=== PATIENT | male | born 1965 | race Caucasian/White ===

== ENCOUNTER 2016-08-19 11:19 | Inpatient (IN) ==
[2016-08-19] MEDS ORDERED: BISACODYL 5 MG TABLET PO PRN (11:22)
[2016-08-19] MEDS ORDERED: HYDROmorphone 2 MG/1 ML VIAL IV PRN (11:22)
[2016-08-19] MEDS ORDERED: ACETAMINOPHEN 325 MG TABLET PO PRN ×2 (11:22→14:35)
[2016-08-19] MEDS ORDERED: ALUMINUM/MAGNES/SIMETH MAX STR 30 ML UDCUP PO PRN (11:22)
--- NOTE | 2016-08-19 11:41 | General Surg History&Physical ---
Assessment and Plan - Time spent with patient Time spent with patient: Greater than 30 minutes (1) Abscess of leg, left Status: Acute Assessment and plan: Impression: 1. Abscess of the left pre-tibial area 2. Chronic osteomylitis of the left leg. Plan: Admit for IV antibiotics and surgery (2) Osteomyelitis of left tibia Status: Acute Qualifiers: Osteomyelitis type: chronic multifocal Qualified Code(s): M86.362 - Chronic multifocal osteomyelitis, left tibia and fibula History of Present Illness Chief complaint: Swelling and pain in the left leg History of present illness: Mr. Walsh is a 51 year old male white who has history of chronic osteomylitis of the left leg and has just recovered from multiple wounds and abscesses of the left leg. He was scheduled to go to [place] on the 06 of September for orthopedic evaluation. He developed some swelling about the healed wounds on Friday that has progressed to fluctuant masses and erythemia. Must believe that this is recurrent abscesses due the osteomylitis and drainage is needed. Home Medications Medication Instructions Recorded Confirmed Type Lisinopril/Hydrochlorothiazide 1 each PO DAILY 06/08/15 05/02/16 History [Lisinopril-Hctz 10-12.5 mg Tab] Allopurinol 300 mg PO DAILY 03/30/16 05/03/16 History Potassium Citrate [Urocit K] 20 meq PO BID 03/30/16 05/03/16 History Acetaminophen Tab [Tylenol Tab] 650 mg PO Q6H PRN #0 tablet 04/12/16 05/03/16 Rx DAPTOmycin [Cubicin] 780 mg IV Q24H #30 vial 04/12/16 05/03/16 Rx Docusate Sodium Cap [Colace Cap] 100 mg PO DAILY #30 capsule 04/12/16 05/03/16 Rx Skin Healing Oint (Aquaphor) 1 applic TOP DAILY #1 ointment 04/12/16 05/02/16 Rx [Aquaphor] oxyCODONE/ACETAMINOPHEN 5-325 1 tablet PO Q6H PRN #40 tablet 04/12/16 05/03/16 Rx [Percocet 5-325] oxyCODONE/ACETAMINOPHEN 5-325 1 tablet PO Q6H #30 tablet 05/03/16 Rx [Percocet 5-325] Allergies Allergy/AdvReac Type Severity Reaction Status Date / Time cephalexin [From flex] Allergy Severe HIVES Verified 05/03/16 06:46 clindamycin Allergy Severe Chest Pain Verified 05/03/16 06:46 Penicillins Allergy Severe HIVES Verified 05/03/16 06:46 Medical,Surgical,& Family Hx - Medical History Cardio: History of: Hypertension Psychological: No history of: Bipolar Disorder, Depression Neurology: No history of: Seizures HEENT: History of: Ear Problem (past hx of tubes) Rheumatology: History of;: Gout (hx), Rheumatoid Arthritis (GOUT) Genitourinary: History of: Kidney Stones (10-12 years off and on; DR CORNEJO) Musculoskeletal: History of: Musculoskeletal Problems (LEFT CALF SWELL TO OLD FX ) Other: History of: Miscellaneous Medical Problems (Pins put in Left toe and leg , took pins out. surgery) - Surgical History Thoracic Surgeries: Surgical HX of;: Lithotripsy HEENT Surgeries: Surgical HX of: Eye Surgery (robin lasix surgery), Tonsilectomy & Adenoidectomy Reproductive Surgeries: Surgical HX of;: Cystoscopy Orthopedic Surgeries: Surgical HX of;: Orthopedic Surgery - Family History Family History: Reports;: Family Diabetes (grandparents), Family Hypertension ( mom and grandparents) Denies;: Family Cancer, Family Heart Disease, Family Psychiatric Problems, Family Stroke - Social History Smoking Status: Never smoker Have you smoked in the last 12 months: No Time spent discussing smoking cessation with patient: 3 to 10 minutes Frequency of Alcohol Use: None Marital Status: Lives With:: Spouse Functional capacity: independent ambulation Exam - Constitutional General appearance: no acute distress - Head Head exam: Present: normal inspection - ENT ENT exam: Present: normal exam Mouth exam: Present: normal external inspection - Neck Neck exam: Present: normal inspection - Respiratory Respiratory exam: Present: clear to auscultation bilaterally - Cardiovascular Cardiovascular exam: Present: RRR - GI/Abdominal GI/Abdominal exam: Present: normal bowel sounds, soft - Extremities Exam Extremities exam: Present: other (Healed wounds on the lower mid pre-tibial area and medially to it. Mass above these wound on the anterior pre-tibial area with flutuance and erythemis with early ischemic changes.) - Back Exam Back exam: Present: normal inspection - Neurological Exam Neurological exam: Present: alert, oriented X3, CN II-XII intact - Skin Skin exam: Present: normal color, warm, dry 12 point system: reviewed and no additional remarkable complaints except as stated Quality Measures - VTE Contraindication to Pharmacological VTE Prophylaxis: High Risk of Bleeding
[2016-08-19 13:03] LABS: Basophils % 0.4 % (0.0-0.8); Eosinophils # 0.2 10*3/uL (0.0-0.87); Eosinophils % 1.8 % (0.00-10.9); Hematocrit 48.3 VOL% (42.0-52.0); Hemoglobin 15.8 GM/DL (14.0-18.0); Immature Granulocytes % 0.2 %; Immature Granulocytes Absolute 0.02 #; Lymphocytes # 2.6 10*3/uL (1.4-4.0); Lymphocytes % 27.6 % (21.2-54.2); Mean Corpuscular HGB Conc 32.7 GM/DL (32-36); Mean Corpuscular Hemoglobin 28 PG (27-34); Mean Corpuscular Volume 85.2 FL (87-102); Mean Platelet Volume 10.2 FL (9.6-12.0); Monocytes # 0.6 10*3/uL (0.11-0.8); Monocytes % 5.9 % (1.7-12.7); Neutrophils % 64.1 % (38.7-73.9); Platelet Count 205 T/CUMM (130-400); Red Blood Count 5.67 MC/CUMM (3.8-5.5); Red Cell Distribution Width 14.2 % (9.3-17.3); White Blood Count 9.4 T/CUMM (4-12)
[2016-08-19] MEDS ORDERED: BUPIVACAINE 0.25% 50 ML VIAL ONE (13:04)
--- NOTE | 2016-08-19 13:14 | XRay Report ---
Exam: XR chest 2V Date: 08/19/2016 11:27 AM Indication: Respiratory preop evaluation lungs for abscess leg Comparison: 05/02/2016 Technical: PA lateral Findings: The heart is normal in size. No obvious infiltrate or effusion. Mediastinum and bony structures are intact. Impression: 1. No acute cardiopulmonary pathology. PROCEDURE INTERPRETED AT [facility] DEPARTMENT OF RADIOLOGY Final Report Signed by: Dr. Dmitry Lee
[2016-08-19 13:20] LABS: PT Patient Result 10.5 SECS; Partial Thromboplastin Time 31.3 SECS (0-40)
[2016-08-19 13:24] LABS: Albumin 4.2 G/DL (3.4-5.0); Bilirubin,Total 0.5 MG/DL (0.2-1.0); Calcium 9.1 MG/DL (8.5-10.1); Osmolality,Calculated 288.6 MOS/KG (273-304); Potassium 4.1 MMOL/L (3.5-5.1); Total Protein 8.1 G/DL (6.4-8.3)
[2016-08-19] MEDS ORDERED: LACTATED RINGERS 1,000 ML IV SCH (13:30)
[2016-08-19] MEDS ORDERED: PROPOFOL 200 MG/20 ML VIAL IV ONE (13:40)
[2016-08-19] MEDS ORDERED: LIDOCAINE 2% 5 ML VIAL ONE (13:40)
[2016-08-19] MEDS ORDERED: VANCOMYCIN 1,000 MG VIAL ONE (13:47)
[2016-08-19] MEDS: HYDROmorphone 2 MG/1 ML VIAL IV PRN ×4 (14:35→14:50)
[2016-08-19] MEDS ORDERED: ONDANSETRON 4 MG/2 ML VIAL ONE (14:37)
[2016-08-19] MEDS ORDERED: HYDROmorphone 2 MG/1 ML VIAL ONE (14:37)
--- NOTE | 2016-08-19 14:42 | Operative Note ---
Date of procedure: 08/19/16 Pre-op diagnosis: Fluctuant mass of the anterior left tibia Post-op diagnosis: other (Fluctuant mass anterior left tibia appears to be hematoma) Procedure: Operative note: Preoperative diagnosis: 1. Fluctuant mass of the anterior tibia left 2. History of chronic osteomyelitis of the left leg Postoperative diagnosis: 1. Fluctuant mass of the anterior tibial left suggestive of hematoma 2. History of osteomyelitis of the left leg Procedure: Excisional debridement and drainage of fluctuant mass left anterior tibia Surgeon Dr. Tristan Anesthesia managed anesthetic care with local infiltration 0.25% Marcaine plain mixed with 1% Xylocaine plain Brief history: 51-year-old white male who presents with a fluctuant mass of the upper part of the leg pretibial area. This is the same leg on the left that has healed almost completely healed wound on the anterior tibial and the lower part of the leg secondary to some chronic underlying osteomyelitis of the leg. It is unclear exactly what this is but with the redness in the ecchymotic area present I felt with his history of osteomyelitis and previous infection that we need to go ahead and get this opened and drained and find out what we are dealing with. Procedure: With patient in the supine position prepped and draped in a sterile fashion timeout and antibiotics completed approaches area of the upper leg where there is a fluctuant mass present. The mass measures 4.5 x 4 cm in size. At this point I went ahead and infiltrated around it with local anesthetic and on top of the surface of it. We then took a knife and I made a vertical incision through the center of this area and as I entered the mass what came out look like old hematoma. I was able to clean this out completely taking some swabs for culture and sensitivity at this time. Once I had cleaned it well and then applied light cauterization to the edges of it to counteract good control of any bleeding and irrigated with saline solution. I now have a wound that is open that measures 4.5 x 1 cm x 1 cm in size. With that pretty well completed I was worried about a second area just medial to this it is a little fluctuant change but the 2 did not communicate so I have elected not to do anything to it at this time since it looked like we had a hematoma on this part. At this point I went ahead and dressed it with the Dakin's wet gauze and a bulky dressing and wrapped with cast padding Covan. We then took the patient to recovery room Estimated blood loss 10 cc Sponge count correct 2 Drains none Complications none Condition stable satisfactory Anesthesia: MAC, local (0.25% Marcaine with epinephrine mixed [id number] 1% Xylocaine plain.) Surgeon / Physician: Luis Tristan Estimated blood loss: other (10 cc) Specimens: other (Cultures) Condition: stable Disposition: floor Results - Labs CBC & BMP: 08/19/16 12:49 08/19/16 12:48 Discharge Plan - Discharge Medications No Action Lisinopril/Hydrochlorothiazide [Lisinopril-Hctz 10-12.5 mg Tab] 1 each PO DAILY Allopurinol 300 mg PO DAILY Potassium Citrate [Urocit K] 20 meq PO BID Acetaminophen Tab [Tylenol Tab] 650 mg PO Q6H PRN #0 tablet PRN Reason: Fever > 100.4 Or Headache Docusate Sodium Cap [Colace Cap] 100 mg PO DAILY #30 capsule Skin Healing Oint (Aquaphor) [Aquaphor] 1 applic TOP DAILY #1 ointment oxyCODONE/ACETAMINOPHEN 5-325 [Percocet 5-325] 1 tablet PO Q6H PRN #40 tablet PRN Reason: Pain Moderate (4-7) DAPTOmycin [Cubicin] 780 mg IV Q24H #30 vial oxyCODONE/ACETAMINOPHEN 5-325 [Percocet 5-325] 1 tablet PO Q6H #30 tablet - Follow Up or Referral - Forms/Instructions
[2016-08-19] MEDS ORDERED: KETAMINE 500 MG/10 ML VIAL ONE (14:48)
[2016-08-19] MEDS ORDERED: fentaNYL 100 MCG/2 ML VIAL ONE (14:48)
[2016-08-19] MEDS ORDERED: MIDAZOLAM 2 MG/2 ML VIAL ONE (14:49)
[2016-08-19] MEDS ORDERED: ONDANSETRON 4 MG/2 ML VIAL IV PRN (14:53)
[2016-08-19] MEDS ORDERED: DAPTOmycin 500 MG VIAL IV SCH (15:00)
[2016-08-19] MEDS: VANCOMYCIN INJ 1,750 MG in SODIUM CHLORIDE 0.9% 500 ML IV SCH (17:39)
[2016-08-19] MEDS: DOCUSATE SODIUM 100 MG CAPSULE PO SCH (20:34)
[2016-08-19] MEDS: POTASSIUM CITRATE 10 MEQ TABLET PO SCH (20:35)
[2016-08-19] MEDS: DEXTROSE 5% LACTATED RINGERS 1,000 ML IV SCH (23:28)
[2016-08-20] MEDS: VANCOMYCIN INJ 1,750 MG in SODIUM CHLORIDE 0.9% 500 ML IV SCH ×2 (00:26→08:22)
[2016-08-20] MEDS: DEXTROSE 5% LACTATED RINGERS 1,000 ML IV SCH ×4 (05:35→19:30)
[2016-08-20 07:05] LABS: Basophils % 0.4 % (0.0-0.8); Eosinophils # 0.1 10*3/uL (0.0-0.87); Eosinophils % 1.4 % (0.00-10.9); Hematocrit 40.7 VOL% (42.0-52.0); Immature Granulocytes % 0.4 %; Immature Granulocytes Absolute 0.04 #; Lymphocytes # 3.2 10*3/uL (1.4-4.0); Mean Corpuscular HGB Conc 31.9 GM/DL (32-36); Mean Corpuscular Hemoglobin 28 PG (27-34); Mean Corpuscular Volume 88.3 FL (87-102); Mean Platelet Volume 10.9 FL (9.6-12.0); Monocytes # 0.8 10*3/uL (0.11-0.8); Monocytes % 8.2 % (1.7-12.7); Neutrophils % 58.6 % (38.7-73.9); Platelet Count 184 T/CUMM (130-400); Red Blood Count 4.61 MC/CUMM (3.8-5.5); Red Cell Distribution Width 14.2 % (9.3-17.3); White Blood Count 10.2 T/CUMM (4-12)
[2016-08-20 07:16] LABS: Potassium 4.4 MMOL/L (3.5-5.1)
[2016-08-20] MEDS: LISINOPRIL/HCTZ 10-12.5 MG TABLET PO SCH (08:20)
[2016-08-20] MEDS: ALLOPURINOL 300 MG TABLET PO SCH (08:21)
[2016-08-20] MEDS: PANTOPRAZOLE 40 MG TABLET PO SCH (08:21)
[2016-08-20] MEDS: DOCUSATE SODIUM 100 MG CAPSULE PO SCH ×3 (08:21→20:49)
[2016-08-20] MEDS: POTASSIUM CITRATE 10 MEQ TABLET PO SCH ×2 (08:22→20:49)
[2016-08-20] MEDS ORDERED: PANTOPRAZOLE 40 MG VIAL IV SCH (09:00)
[2016-08-20] MEDS: SODIUM HYPOCHLORITE 0.25% IRRIG 473 ML BOTTLE TOP SCH (09:14)
[2016-08-20] MEDS: SKIN HEALING OINT (AQUAPHOR) 50 GM TUBE TOP SCH (09:15)
[2016-08-20] MEDS: BACITRACIN OINT 0.9 GM PACK TOP SCH (09:17)
--- NOTE | 2016-08-20 10:48 | General Surgery Progress Note ---
Assessment and Plan - Time spent with patient Time spent with patient: Less than 30 minutes (1) Hematoma of left lower extremity Status: Acute Assessment and plan: 08/20/16 Stable post I&D with evacuation of hematoma of the left lower leg. We' ll continue antibiotic coverage and wound care while awaiting cultures. If clear , consider closure. Current Visit: Yes Subjective Patient reports: Present: feels better. Absent: nausea, vomiting, shortness of breath Exam - Constitutional Vitals: Period Temp Pulse Resp BP Sys/Clark Pulse Ox Last 24 Hr 97.6 F-97.8 F 69-95 16-20 114-139/74-99 93-100 General appearance: no acute distress - Respiratory Respiratory exam: Present: clear to auscultation bilaterally - Cardiovascular Cardiovascular exam: Present: RRR - Extremities Exam Extremities exam: Present: other (Post op wound is clean and there is no active bleeding; mild erythema that is confined to the immediate incisioinal area. No advancing redness or induration. Calf is soft.) Results - Labs CBC & BMP: 08/20/16 05:57 08/20/16 05:57 Lab Results: I have reviewed the past 24 hour labs Quality Measures - VTE Contraindication to Pharmacological VTE Prophylaxis: High Risk of Bleeding
[2016-08-20] MEDS: VANCOMYCIN INJ 2,000 MG in SODIUM CHLORIDE 0.9% 500 ML IV SCH (20:51)
[2016-08-21] MEDS: DEXTROSE 5% LACTATED RINGERS 1,000 ML IV SCH ×2 (07:07→09:02)
[2016-08-21] MEDS: PANTOPRAZOLE 40 MG TABLET PO SCH (09:06)
[2016-08-21] MEDS: ALLOPURINOL 300 MG TABLET PO SCH (09:06)
[2016-08-21] MEDS: DOCUSATE SODIUM 100 MG CAPSULE PO SCH ×3 (09:06→20:39)
[2016-08-21] MEDS: LISINOPRIL/HCTZ 10-12.5 MG TABLET PO SCH (09:06)
[2016-08-21] MEDS: POTASSIUM CITRATE 10 MEQ TABLET PO SCH ×2 (09:06→20:39)
[2016-08-21] MEDS: VANCOMYCIN INJ 2,000 MG in SODIUM CHLORIDE 0.9% 500 ML IV SCH ×2 (10:30→20:38)
--- NOTE | 2016-08-21 10:35 | General Surgery Progress Note ---
Assessment and Plan - Time spent with patient Time spent with patient: Less than 30 minutes (1) Abscess of leg, left Status: Acute Assessment and plan: Impression: 1. Abscess of the left pre-tibial area 2. Chronic osteomylitis of the left leg. Plan: Admit for IV antibiotics and surgery 08/21/2016 The swelling of the leg is much improved at this time. The wound itself is clean with no sign of any infection or unusual drainage. A little fluctuant area off to the medial aspect really is little bit better and stable with no sign of any progression of any evidence of infection. The cultures are no growth at 24 hours. If we get a no growth at 48 hours then I have recommended to the patient we plan to close the wound and then we can probably let him go home in the hopes of getting quicker healing of this wound. Current Visit: Yes (2) Osteomyelitis of left tibia Status: Acute Current Visit: No Qualifiers: Osteomyelitis type: chronic multifocal Qualified Code(s): M86.362 - Chronic multifocal osteomyelitis, left tibia and fibula Subjective Patient reports: Present: feels better, tolerating a regular diet, afebrile Exam - Constitutional Vitals: Period Temp Pulse Resp BP Sys/Clark Pulse Ox Last 24 Hr 97.5 F-98.3 F 70-82 18-20 124-134/72-84 95-97 General appearance: no acute distress - Head Head exam: Present: normal inspection - ENT ENT exam: Present: normal exam - Neck Neck exam: Present: normal inspection - Respiratory Respiratory exam: Present: clear to auscultation bilaterally - Cardiovascular Cardiovascular exam: Present: RRR - GI/Abdominal GI/Abdominal exam: Present: normal bowel sounds, soft - Extremities Exam Extremities exam: Present: other (Wound of the left leg is clean and dry with no sign of any infection or drainage. The area on to the medial aspect of this leg is stable and unchanged.) - Neurological Exam Neurological exam: Present: alert, oriented X3, CN II-XII intact - Skin Skin exam: Present: normal color, warm, dry Results - Labs CBC & BMP: 08/20/16 05:57 08/20/16 05:57 Lab Results: I have reviewed the past 24 hour labs Labs: Cultures no growth at 24 hours Quality Measures - VTE Contraindication to Pharmacological VTE Prophylaxis: High Risk of Bleeding
[2016-08-21] MEDS: SODIUM HYPOCHLORITE 0.25% IRRIG 473 ML BOTTLE TOP SCH (15:38)
[2016-08-21] MEDS: BACITRACIN OINT 0.9 GM PACK TOP SCH (15:38)
[2016-08-21] MEDS: SKIN HEALING OINT (AQUAPHOR) 50 GM TUBE TOP SCH (15:38)
--- NOTE | 2016-08-21 21:31 | Anesthesia ---
Anesthesia Post OP - Post Ansesthetic Evaluation Patient seen in post op: Yes Resp: within normal limits CV: within normal limits Mental: within normal limits Temp: within normal limits [id number]: within normal limits Nausea and Vomiting: within normal limits Pain: within normal limits Patient seen at: date (08/19/2016), time (1416)
[2016-08-22] MEDS: LISINOPRIL/HCTZ 10-12.5 MG TABLET PO SCH (09:48)
[2016-08-22] MEDS: PANTOPRAZOLE 40 MG TABLET PO SCH (09:48)
[2016-08-22] MEDS: VANCOMYCIN INJ 2,000 MG in SODIUM CHLORIDE 0.9% 500 ML IV SCH (09:50)
--- NOTE | 2016-08-22 10:06 | General Surgery Progress Note ---
Assessment and Plan - Time spent with patient Time spent with patient: Less than 30 minutes (1) Hematoma of left lower extremity Status: Acute Assessment and plan: 08/22/16 Doing well post I&D; no growth seen on final wound culture. The patient is anxious to proceed with delayed wound closure so we will go ahead with this today. 08/20/16 Stable post I&D with evacuation of hematoma of the left lower leg. We' ll continue antibiotic coverage and wound care while awaiting cultures. If naomi/ consider closure. Current Visit: Yes Subjective Patient reports: Present: feels better Exam - Constitutional Vitals: Period Temp Pulse Resp BP Sys/Clark Pulse Ox Last 24 Hr 97.8 F-98.8 F 71-88 18-20 136-150/82-98 94-97 General appearance: no acute distress - Neck Neck exam: Present: normal inspection - Respiratory Respiratory exam: Present: clear to auscultation bilaterally - Cardiovascular Cardiovascular exam: Present: RRR - Extremities Exam Extremities exam: Present: other (LLE without drainage or swelling. Good capillary refill. ) Results - Labs CBC & BMP: 08/20/16 05:57 08/20/16 05:57 Lab Results: I have reviewed the past 24 hour labs (Micro shows no growth at 48h.) Quality Measures - VTE Contraindication to Pharmacological VTE Prophylaxis: High Risk of Bleeding Specialty Discharge - Follow Up or Referrals Follow up with: Luis Tristan MD [Primary Care Provider] -
[2016-08-22] MEDS: SKIN HEALING OINT (AQUAPHOR) 50 GM TUBE TOP SCH (10:50)
[2016-08-22] MEDS: BACITRACIN OINT 0.9 GM PACK TOP SCH (10:50)
[2016-08-22] MEDS: POTASSIUM CITRATE 10 MEQ TABLET PO SCH (10:51)
[2016-08-22] MEDS: ALLOPURINOL 300 MG TABLET PO SCH (10:51)
[2016-08-22] MEDS: DOCUSATE SODIUM 100 MG CAPSULE PO SCH ×2 (10:51)
[2016-08-22] MEDS: SODIUM HYPOCHLORITE 0.25% IRRIG 473 ML BOTTLE TOP SCH (10:51)
[2016-08-22] MEDS ORDERED: BUPIVACAINE 0.25% 50 ML VIAL ONE (10:56)
[2016-08-22] MEDS ORDERED: PROPOFOL 200 MG/20 ML VIAL IV ONE (11:15)
[2016-08-22] MEDS ORDERED: ONDANSETRON 4 MG/2 ML VIAL ONE ×2 (11:15→12:10)
--- NOTE | 2016-08-22 11:51 | Operative Note ---
Date of procedure: 08/22/16 Pre-op diagnosis: Open wound left pre-tibial area Post-op diagnosis: same Procedure: Operative note: Pre-op diagnosis: Open wound left Pre-tibial area Post-op diagnosis: Same Procedure: Debridement with delayed closure of wound Surgeon: Dr. Tristan Assistance: Jd Prince [facility] Anesthisa MCA with local Brief History: Pt with open wound of the left Pre-tibial area that has negative culture. It appears to be a hematoma and will close so that it can heal faster. Procedure: With patient in supine position prepped and drapped in sterile fashion we approach the area of the wound on the left pretibial area. It measures 4.5 x 1 x 1 cm in size. At that point I went ahead and infiltrated with local anesthetic around it. Washed and irrigated with saline solution and a trim some of the slough of the center of the wound as well as trimmed on the skin edge to get a good clean. We then applied electrocauterization control any bleeding to the wound bed and washed irrigated with saline solution again. The wound looks pretty clean but it is a little wet at this point I felt that it unsafe thing to do was to lay a Isauro drain in this area. I then sutured it with a vertical mattress of 3-0 nylon and secured the drain in. Once the wound was completely closed we dressed it with Mepitel Aquacel along with a bulky dressing to the patient recovery room stable satisfactory condition. Estimated blood loss 5 cc Sponge count correct 2 Drains one Isauro Complications none Condition stable satisfactory Anesthesia: MAC, local (0.25% marcaine plain with 1% xylocain plain) Surgeon / Physician: Luis Tritsan [facility] Navigator: Ana Paula Prince Estimated blood loss: minimal Specimens: none sent Condition: stable Disposition: floor Results - Labs CBC & BMP: 08/20/16 05:57 08/20/16 05:57 Discharge Plan - Discharge Medications No Action Lisinopril/Hydrochlorothiazide [Lisinopril-Hctz 10-12.5 mg Tab] 1 each PO DAILY Allopurinol 300 mg PO DAILY Potassium Citrate [Urocit K] 20 meq PO BID - Follow Up or Referral Follow Up: Luis Tristan MD [Primary Care Provider] - - Forms/Instructions
[2016-08-22] MEDS: HYDROmorphone 2 MG/1 ML VIAL IV PRN ×2 (12:12→12:19)
[2016-08-22] MEDS: ONDANSETRON 4 MG/2 ML VIAL IV PRN ×2 (12:15→16:03)
--- NOTE | 2016-08-22 12:16 | Discharge Summary ---
Hospital Course - Hospital Course Hospital Course: Discharge summary-08/22/16 Diagnosis: 1. Hematoma of the left lower leg 2. History of osteomyelitis in this area 3. Hypertension 4. Chronic venous stasis, secondary to old injury of the left lower leg Procedure: 1. I&D/evacuation of the left lower leg hematoma on 08/19/16 2. Delayed closure of the left lower leg wound on 08/22/16 Brief summary-this 51 year old male was admitted from the office after developing increased pain and swelling of the anterior left lower leg. This had occured over the prior 2 days, beginning about 08/17/16, and was located along the anterior portion of the left tibia, just superior to a wound and an area of osteomyelitis that he had recently completed treatment and skin grafting for. The area was initially felt to be due to abscess, and he was admitted on , taken to surgery, and the area opened and drained, however, the material drained was characteristic of hematoma and no real purulent material was seen. Culture was taken at that time and empiric antibiotics begun IV. Postoperatively he did well, tolerating wound care and medications without difficulty. Labs and vital signs were stable. His final cultures this morning revealed no growth at 48h, and they were anxious for planned delayed wound closure, so we at that point took him to surgery, where the wound was irrigated and debrided slightly, a priya drain placed, and the wound closed primarily with interrupted 3-0 ethilon sutures. He tolerated the procedure well and was taken to [facility] in stable condition, with the plans for discharge later today on Ottertail for pain as well as routine daily wound care per his for the closed incision. We will plan to have him return to our office next week for consideration of removing the priya drain, and in 2 weeks for removing the sutures. At this point, there does not appear to be a need for continued antibiotics so he will just resume his previous home medications only, in addition to the Ottertail. - Time spent with patient Time with patient DS: Less than 30 minutes Diagnosis - Discharge Diagnosis (1) Hematoma of left lower extremity Status: Acute Specialty Discharge - Follow Up or Referrals Follow up with: Luis Tristan MD [Primary Care Provider] - (See Dr Tristan or Ana Paula in 1 week for drain removal.) Discharge Plan - Discharge Data Disposition: Disch To Home/Self Care Condition at Discharge: Stable Discharge Diet: advance to your usual diet Activity: increase activity as tolerated, no prolonged standing, other (No prolonged sitting with your legs hanging down. ) Hygiene: may shower Weight Bearing at Discharge: weight bear as tolerated Driving: not for (48h) Contact your physician if you experience:: fever over 101, Redness or swelling, Nausea/Vomiting, Shortness of breath, Bleeding, pain uncontrolled by pain medications Wound / Dressing Care Instructions: Shower/clean the incision and lower leg daily with Hibiclens or antibacterial soap & water; spray over sutures and drain with wound cleanser and pat dry. Fold a single gauze and place under the drain at the end of the wound; fold a second piece and fold lengthwise along the stitches. Add another gauze for padding. Use good skin moisturizing lotion to remainder of leg and foot. Wrap from toes to knee with overlapping layers of cast padding and secure with coban. - Discharge Medications New HYDROcodone/ACETAMIN 7.5-325 [Ottertail 7.5-325] 1 tablet PO Q6HR #14 tablet Skin Healing Oint (Aquaphor) [Aquaphor] 1 applic TOP DAILY applic Continue Lisinopril/Hydrochlorothiazide [Lisinopril-Hctz 10-12.5 mg Tab] 1 each PO DAILY Allopurinol 300 mg PO DAILY Potassium Citrate [Urocit K] 20 meq PO BID - Follow Up or Referral Follow Up: Luis Tristan MD [Primary Care Provider] - - Forms/Instructions Exam - Constitutional Vitals: Period Temp Pulse Resp BP Sys/Clark Pulse Ox Last 24 Hr 97.8 F-98.6 F 64-88 18-20 136-150/82-91 94-98 General appearance: no acute distress, over weight - Head Head exam: Present: normocephalic - Neck Neck exam: Present: normal inspection - Respiratory Respiratory exam: Present: clear to auscultation bilaterally - Cardiovascular Cardiovascular exam: Present: regular rate and rhythm - GI/Abdominal GI/Abdominal exam: Present: normal bowel sounds, soft. Absent: distended, tenderness - Extremities Exam Extremities exam: Present: edema (Moderate chronic venous stasis skin changes with edema but no weeping or new ulcerations. ), other (LLE without erythema or ischemic changes. He has an open incision at the anterior portion of the lower leg, just superior to the old skin graft. The wound is clean and we have now closed the skin over a priya drain. ) DS: Provider Date of admission: 08/19/16 11:53 Primary care physician: Luis Tristan MD Attending physician on admission: Luis Tristan MD Consults: 08/19/16 11:32 Consult to Anesthesiology [CONS] Routine Consulting Provider: Reason for Anesthesiology: Pre-op Clearance 08/19/16 13:40 Consult to Pharmacy [CONS] Routine Reason for Pharmacy Consult: Dose/Manage Vancomycin Adjust Meds Renal Funct 08/19/16 14:24 Consult to Wound Care - [place] [CONS] Routine Reason for Wound Care: Wound Care Management Consult Comment: left leg wound 08/22/16 10:03 Consult to Anesthesiology [CONS] Routine Consulting Provider: Reason for Anesthesiology: Pre-op Clearance Discharging clinician: Ana Paula Prince CNP, R
[2016-08-22] MEDS ORDERED: fentaNYL 100 MCG/2 ML VIAL ONE (12:28)
[2016-08-22] MEDS ORDERED: MIDAZOLAM 2 MG/2 ML VIAL ONE (12:28)
[2016-08-22] MEDS ORDERED: KETAMINE 500 MG/10 ML VIAL ONE (12:32)
--- NOTE | 2016-08-22 13:59 | Anesthesia ---
Anesthesia Post OP - Post Ansesthetic Evaluation Patient seen in post op: Yes Resp: within normal limits CV: within normal limits Mental: within normal limits Temp: within normal limits [id number]: within normal limits Nausea and Vomiting: within normal limits Pain: within normal limits
[2016-08-22 17:09] VITALS: BP 136/97
== END 2016-08-22 16:40 | disposition home or self-care (01) | DRG 902 ==
LOC: N.3E → OBSVTOIN 11:53
PROVIDERS: ADMIT Specialist; ATTEND Specialist